=== PATIENT | female | born 1940 | race Caucasian/White ===

== ENCOUNTER 2016-12-06 07:35 | Day surgery (SDC) | payer OTHER ==
[2016-12-06] MEDS ORDERED: D5 NS 1000 ML 1,000 ML IV ONE (07:42)
[2016-12-06] MEDS ORDERED: DIPRIVAN VIAL 20 ML ONE (08:55)
[2016-12-06] MEDS ORDERED: XYLOCAINE 2 % (PLAIN) ONE (08:55)
[2016-12-06 10:21] VITALS: BP 142/74
== END 2016-12-06 09:55 | disposition home or self-care (01) ==
LOC: SURG1 07:35
PROVIDERS: ATTEND Internal Medicine Gastroenterology
PROC: 0DJD8ZZ Inspection of Lower Intestinal Tract, Via Natural or Artificial Opening Endoscopic (ICD-10-PCS; principal; 2016-12-06 09:15)
PROC: 0DBK8ZX Excision of Ascending Colon, Via Natural or Artificial Opening Endoscopic, Diagnostic (ICD-10-PCS; principal; 2016-12-06 09:15)
PROC: 0DBN8ZX Excision of Sigmoid Colon, Via Natural or Artificial Opening Endoscopic, Diagnostic (ICD-10-PCS; principal; 2016-12-06 09:15)
PROC: 0DBL8ZX Excision of Transverse Colon, Via Natural or Artificial Opening Endoscopic, Diagnostic (ICD-10-PCS; principal; 2016-12-06 09:15)
DX: Z80.0 Family history of malignant neoplasm of digestive organs (principal); R63.4 Abnormal weight loss; R19.4 Change in bowel habit; K63.5 Polyp of colon; K57.30 Diverticulosis of large intestine without perforation or abscess without bleeding; K64.0 First degree hemorrhoids; D12.2 Benign neoplasm of ascending colon; D12.5 Benign neoplasm of sigmoid colon
CPT/HCPCS: A4217; J2001; J3490